=== PATIENT | male | born 1970 | race Caucasian/White ===

== ENCOUNTER → 2020-11-22 | Outpatient (CLI) | payer MEDICARE, OTHER ==
[2020-11-22 09:46] LABS: ALBUMIN 3.1 g/dL (3.4-5.0); ALBUMIN/GLOBULIN RATIO 0.6 (1.0-1.7); CREATININE 4.8 mg/dL (0.7-1.3); GFR 12.9; POTASSIUM 3.6 mmol/L (3.5-5.1); TOTAL BILIRUBIN 0.7 mg/dL (0.2-1.0); TOTAL PROTEIN 8.3 g/dL (6.4-8.2)
[2020-11-22 18:51] LABS: HDLC 18 mg/dL (40-60); TRIGLYCERIDES 541 mg/dL (0-150); VLDLC 108 mg/dL (0-40)
[2020-11-23 02:07] LABS: HEMOGLOBIN A1C 7.6 % (4.8-5.6)
== END ==
LOC: LAB 08:18
PROVIDERS: ATTEND Internal Medicine Endocrinology, Diabetes & Metabolism
DX: E11.65 Type 2 diabetes mellitus with hyperglycemia (principal); E55.9 Vitamin D deficiency, unspecified; E78.00 Pure hypercholesterolemia, unspecified
CPT/HCPCS: 36415; 80053; 80061; 82550; 83036

== ENCOUNTER → 2021-01-08 | Outpatient (CLI) | payer MEDICARE, OTHER ==
[2021-01-08 10:11] LABS: BASO # 0.1 x10^3/uL (0.0-0.2); BASO % 1 % (0-3); EOS # 0.1 x10^3/uL (0.0-0.7); EOS % 2 % (0-3); LYMPH # 1.1 x10^3/uL (1.0-4.8); LYMPH % 17 % (24-48); MEAN CORPUSCULAR HEMOGLOBIN 31 pg (25-35); MEAN CORPUSCULAR HGB CONC 34 g/dL (31-37); MEAN CORPUSCULAR VOLUME 94 fL (79-100); MONO # 0.4 x10^3/uL (0.0-1.1); MONO % 6 % (0-9); NEUT % 74 % (31-73); PLATELET COUNT 221 x10^3/uL (140-400); RED BLOOD COUNT 3.52 x10^6/uL (4.30-5.70); RED CELL DISTRIBUTION WIDTH 17.5 % (11.5-14.5); WHITE BLOOD COUNT 6.7 x10^3/uL (4.0-11.0)
[2021-01-08 11:03] LABS: ALBUMIN 3.1 g/dL (3.4-5.0); CALCIUM 8.4 mg/dL (8.5-10.1); CREATININE 6.8 mg/dL (0.7-1.3); DIRECT BILIRUBIN 0.1 mg/dL (0.0-0.2); GFR 8.7; POTASSIUM 3.9 mmol/L (3.5-5.1); TOTAL BILIRUBIN 0.5 mg/dL (0.2-1.0); TOTAL PROTEIN 8.3 g/dL (6.4-8.2)
[2021-01-08 15:16] LABS: HDLC 22 mg/dL (40-60); TRIGLYCERIDES 897 mg/dL (0-150); VLDLC 179 mg/dL (0-40)
[2021-01-08 15:17] LABS: FREE T4 1.11 ng/dL (0.76-1.46); THYROID STIM HORMONE (TSH) 5.987 uIU/mL (0.358-3.740)
[2021-01-09 01:15] LABS: HEMOGLOBIN A1C 8.9 % (4.8-5.6)
== END ==
LOC: LAB 08:52
PROVIDERS: ATTEND Family Medicine
DX: N40.0 Benign prostatic hyperplasia without lower urinary tract symptoms (principal); I10 Essential (primary) hypertension; E11.9 Type 2 diabetes mellitus without complications; D63.8 Anemia in other chronic diseases classified elsewhere; E55.9 Vitamin D deficiency, unspecified; E78.5 Hyperlipidemia, unspecified
CPT/HCPCS: 36415; 80048; 80061; 80076; 82306; 82550; 83036; 84153; 84439; 84443; 85025; G0103

== ENCOUNTER → 2021-04-18 | Outpatient (CLI) | payer MEDICARE, OTHER ==
[2021-04-19 00:08] LABS: HEMOGLOBIN A1C 8.7 % (4.8-5.6)
== END ==
LOC: LAB 10:14
PROVIDERS: ATTEND Internal Medicine Endocrinology, Diabetes & Metabolism
DX: E11.8 Type 2 diabetes mellitus with unspecified complications (principal)
CPT/HCPCS: 36415; 83036

== ENCOUNTER → 2021-05-19 | Outpatient (CLI) | payer MEDICARE, OTHER ==
[2021-05-19 11:03] LABS: BASO # 0.1 x10^3/uL (0.0-0.2); BASO % 1 % (0-3); EOS # 0.1 x10^3/uL (0.0-0.7); EOS % 2 % (0-3); HEMATOCRIT 31.7 % (39.0-53.0); HEMOGLOBIN 10.7 g/dL (13.0-17.5); LYMPH # 1.1 x10^3/uL (1.0-4.8); LYMPH % 19 % (24-48); MEAN CORPUSCULAR HEMOGLOBIN 34 pg (25-35); MEAN CORPUSCULAR HGB CONC 34 g/dL (31-37); MEAN CORPUSCULAR VOLUME 101 fL (79-100); MONO # 0.3 x10^3/uL (0.0-1.1); MONO % 6 % (0-9); NEUT # 4.2 x10^3uL (1.8-7.7); NEUT % 73 % (31-73); PLATELET COUNT 194 x10^3/uL (140-400); RED BLOOD COUNT 3.15 x10^6/uL (4.30-5.70); RED CELL DISTRIBUTION WIDTH 18.8 % (11.5-14.5); WHITE BLOOD COUNT 5.8 x10^3/uL (4.0-11.0)
[2021-05-19 11:17] LABS: ALBUMIN 3.3 g/dL (3.4-5.0); ALBUMIN/GLOBULIN RATIO 0.9 (1.0-1.7); C REACTIVE PROTEIN 23.4 mg/L (0-3.3); CALCIUM 8.1 mg/dL (8.5-10.1); CREATININE 7.7 mg/dL (0.7-1.3); GFR 7.5; POTASSIUM 4.4 mmol/L (3.5-5.1); TOTAL BILIRUBIN 0.5 mg/dL (0.2-1.0); TOTAL PROTEIN 7.1 g/dL (6.4-8.2)
[2021-05-19 14:34] LABS: HDLC 27 mg/dL (40-60); TRIGLYCERIDES 994 mg/dL (0-150); VLDLC 199 mg/dL (0-40)
[2021-05-20 01:07] LABS: HEMOGLOBIN A1C 7.5 % (4.8-5.6)
== END ==
LOC: LAB 09:10
PROVIDERS: ATTEND Internal Medicine
DX: E11.9 Type 2 diabetes mellitus without complications (principal); E55.9 Vitamin D deficiency, unspecified; E78.00 Pure hypercholesterolemia, unspecified
CPT/HCPCS: 80053; 80061; 82306; 82550; 83036; 83695; 85025; 85384; 86140

== ENCOUNTER 2021-05-30 16:23 | Emergency (ER) | payer MEDICARE, OTHER ==
[~2021-05-30] VITALS: Ht 175.3 cm; Wt 138.0 kg
--- NOTE | 2021-05-30 17:42 | PHYS DOC ---
General Adult EDM: Chief Complaint: FOOT INJURY PAIN HPI: HPI: Patient is a 50-year-old male coming in for right foot pain. Patient states that he woke up with pain yesterday. Denies any known history of trauma or stepping wrong. Patient ambulates with a walker and a right lower extremity brace. 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 Patient denies any systemic complaints. He states he normally does not have pain in his foot, has neuropathy. States the pain is at the amputation part of the base of the right great toe. Denies any sores or drainage. States his right lower extremity is a little more swollen at baseline and is not different. Patient is a hemodialysis patient Wednesday//Wed. (CHANDRIKA PAK MD) HPI: ",,,I hurt this foot .. you can see the redness and bruising on top of the foot and where I had my amputation of that lst toe..." (ЮЛИЯ JACKSON MD) Review of Systems: Review of Systems: All other systems within normal limits except for as noted in the HPI (CHANDRIKA PAK MD) Physical Exam: PE: Constitutional: Well developed, well nourished, no acute distress, non-toxic appearance. [] HENT: Normocephalic, atraumatic, bilateral external ears normal, nose normal. [] Eyes: PERRLA, conjunctiva normal, no discharge. [] Neck: No rigidity, supple, no stridor. [] Cardiovascular: Regular rate and rhythm, brisk cap refill [] Lungs & Thorax: Non labored symmetric respirations, no tachypnea or respiratory distress [] Abdomen: Soft, nondistended. Skin: Warm, dry, no erythema, no rash. [] Lower extremity exam, warmth and erythema slightly more on right, sequelae of venous stasis. Back: Unremarkable Extremities: No deformities, range of motion grossly intact, no lower extremity edema. Right middle finger amputation, amputation of right second and first toes. [] Neurologic: Alert and oriented X 3, no focal deficits noted. [] Psychologic: Affect normal, judgement normal, mood normal. [] (CHANDRIKA PAK MD) EKG: EKG: [] (CHANDRIKA PAK MD) Radiology/Procedures: Radiology/Procedures: [] (CHANDRIKA PAK MD) Radiology/Procedures: [place] [address] IMAGING REPORT Signed PATIENT: GLENNA JOHNS ACCOUNT: [id number] : 1970 LOCATION: ER AGE: 50 SEX: M EXAM STATUS: REG ER ORD. PHYSICIAN: CHANDRIKA PAK MD REASON: pain at stump of great toe, AMPUTATION 2019, NON HEALING WOUNDS PROCEDURE: FOOT RIGHT 3V XR FOOT_RIGHT 3 VIEWS 05/30/2021 6:16 PM INDICATION: Pain at the stump of great toe. Amputation 2019 COMPARISON: None available. TECHNIQUE: 3 views of the right foot are provided. FINDINGS/ IMPRESSION: Focal soft tissue swelling identified along the forefoot. No acute fracture. No osseous erosion. No subcutaneous gas is identified. There is diffuse osteopenia. Remodeling of the base of the third and fourth metatarsals suggest sequela of remote trauma. Advanced degenerative changes identified at the metatarsophalangeal joint of the third digit. Hardware identified within the fibula, only partially profiled. Electronically signed by: Vane Bailey MD (05/30/2021 7:45 PM) [facility] DICTATED AND SIGNED BY: VANE BAILEY MD DATE: 05/30/211942 CC: CHANDRIKA PAK MD; ЮЛИЯ JACKSON MD; CHEIKH CATHERINE (ЮЛИЯ JACKSON MD) Heart Score: C/O Chest Pain: No Risk Factors: Risk Factors: DM, Current or recent (<one month) smoker, HTN, HLP, family history of CAD, obesity. Risk Scores: Score 0 - 3: 2.5% MACE over next 6 weeks - Discharge Home Score 4 - 6: 20.3% MACE over next 6 weeks - Admit for Clinical Observation Score 7 - 10: 72.7% MACE over next 6 weeks - Early Invasive Strategies (CHANDRIKA PAK MD) Course & Med Decision Making: Course & Med Decision Making Pending work-up at shift change. (CHANDRIKA PAK MD) Course & Med Decision Making See Dr. Pak chart for details prior shift change. Keep follow up with HD and primary. Topical Lidocaine patch. Tylenol for pain. Follow up with primary.. No obvious cellulitis. Bone remodeling suggestive of remote trauma. Keep hemodialysis appointment. Take the clindamycin 300 three times a day., Impression: 1. Rt Foot pain area 1st toe- X-ray suggestive of Remote Trauma and bone remodeling 2. Peripheral vascular disease 3. Venous stasis 4. Anemia hemoglobin 10.5 5. End-stage renal disease with hemodialysis on Tuesdays and Wednesday 6 . BUN 52 and creatinine 7.3-elevated 7. Diabetes glucose 159 8. Elevation CRP (ЮЛИЯ JACKSON MD) Dragon Disclaimer: Dragon Disclaimer: This electronic medical record was generated, in whole or in part, using a voice recognition dictation system. (CHANDRIKA PAK MD) Departure Departure: Referrals: CHEIKH CATHERINE (PCP) Scripts Clindamycin Hcl (CLINDAMYCIN HCL) 300 Mg Capsule 300 MG PO TID for cellulitis for 10 Days, #30 CAP Prov: ЮЛИЯ JACKSON MD 05/30/21 Lidocaine (Lidocaine PATCH ) 1 Each Adh..patch 1 EACH TP DAILY for FOR LOCAL PAIN, #10 PATCH REMOVE AFTER 12 HOURS Prov: ЮЛИЯ JACKSON MD 05/30/21 Dragon Disclaimer This chart was dictated in whole or in part using Voice Recognition software in a busy, high-work load, and often noisy Emergency Department environment. It may contain unintended and wholly unrecognized errors or omissions. (ЮЛИЯ JACKSON MD) Dragon Disclaimer This chart was dictated in whole or in part using Voice Recognition software in a busy, high-work load, and often noisy Emergency Department environment. It may contain unintended and wholly unrecognized errors or omissions. (CHANDRIKA PAK MD) CHANDRIKA PAK MD May 30, 2021 17:42 ЮЛИЯ JACKSON MD May 30, 2021 18:05
[2021-05-30 18:08] VITALS: BP 126/59
[2021-05-30 18:42] LABS: BASO # 0.1 x10^3/uL (0.0-0.2); BASO % 1 % (0-3); EOS # 0.1 x10^3/uL (0.0-0.7); EOS % 1 % (0-3); HEMATOCRIT 31.5 % (39.0-53.0); HEMOGLOBIN 10.5 g/dL (13.0-17.5); LYMPH # 0.8 x10^3/uL (1.0-4.8); LYMPH % 11 % (24-48); MEAN CORPUSCULAR HEMOGLOBIN 34 pg (25-35); MEAN CORPUSCULAR HGB CONC 33 g/dL (31-37); MEAN CORPUSCULAR VOLUME 100 fL (79-100); MONO # 0.4 x10^3/uL (0.0-1.1); MONO % 6 % (0-9); NEUT # 5.6 x10^3uL (1.8-7.7); NEUT % 81 % (31-73); PLATELET COUNT 235 x10^3/uL (140-400); RED BLOOD COUNT 3.14 x10^6/uL (4.30-5.70); RED CELL DISTRIBUTION WIDTH 18.4 % (11.5-14.5); WHITE BLOOD COUNT 6.9 x10^3/uL (4.0-11.0)
[2021-05-30 18:44] LABS: CALCIUM 8.7 mg/dL (8.5-10.1); CREATININE 7.3 mg/dL (0.7-1.3); POTASSIUM 4.2 mmol/L (3.5-5.1)
[2021-05-30 18:49] LABS: ALBUMIN 3.1 g/dL (3.4-5.0); ALBUMIN/GLOBULIN RATIO 0.7 (1.0-1.7); C REACTIVE PROTEIN 38.8 mg/L (0-3.3); MAGNESIUM 2.4 mg/dL (1.8-2.4); PHOSPHORUS 3.8 mg/dL (2.6-4.7); TOTAL BILIRUBIN 0.7 mg/dL (0.2-1.0); TOTAL PROTEIN 7.6 g/dL (6.4-8.2)
--- NOTE | 2021-05-30 19:47 | RAD ---
XR FOOT_RIGHT 3 VIEWS 05/30/2021 6:16 PM INDICATION: Pain at the stump of great toe. Amputation 2019 COMPARISON: None available. TECHNIQUE: 3 views of the right foot are provided. FINDINGS/ IMPRESSION: Focal soft tissue swelling identified along the forefoot. No acute fracture. No osseous erosion. No s ubcutaneous gas is identified. There is diffuse osteopenia. Remodeling of the base of the third and f ourth metatarsals suggest sequela of remote trauma. Advanced degenerative changes identified at the m etatarsophalangeal joint of the third digit. Hardware identified within the fibula, only partially pr ofiled. Electronically signed by: Jessica Lebron MD (05/30/2021 7:45 PM) [place]
[2021-05-30 19:48] LABS: SEDIMENTATION RATE 81 (0-15)
[2021-05-30] MEDS ORDERED: LIDO700A21 TP (20:17)
[2021-05-30] MEDS ORDERED: CLIN-95 PO (20:23)
[2021-05-30] MEDS ORDERED: oxyCODONE/APAP 5/325 1 TAB TABLET PO ONE (20:30)
[2021-05-30] MEDS ORDERED: SMZ/TMP 800/160MG TABLET. PO ONE (20:30)
[2021-05-30] MEDS ORDERED: CLINDAMYCIN HCL 150 MG CAPSULE PO ONE (20:30)
== END 2021-05-30 20:32 | disposition home or self-care (01) ==
LOC: ER 16:23
DX: M79.671 Pain in right foot (principal); I73.9 Peripheral vascular disease, unspecified; I87.8 Other specified disorders of veins; D64.9 Anemia, unspecified; E11.22 Type 2 diabetes mellitus with diabetic chronic kidney disease; N18.6 End stage renal disease; R79.89 Other specified abnormal findings of blood chemistry; Z99.2 Dependence on renal dialysis; Z89.021 Acquired absence of right finger(s); Z89.411 Acquired absence of right great toe
CPT/HCPCS: 36415; 73630; 80053; 83735; 84100; 85025; 85651; 86140; 87040; 96374; 99284; J3010